=== PATIENT | female | born 1975 | race Caucasian/White ===

== ENCOUNTER 2023-02-22 13:22 | Emergency (ER) | payer BC ==
[~2023-02-22] VITALS: Ht 162.6 cm; Wt 50.9 kg
[2023-02-22 13:49] VITALS: BP 117/78; TEMP 98.1
[2023-02-22] MEDS ORDERED: MOTRIN 800800 MG/TAB PO (14:07)
[2023-02-22] MEDS ORDERED: AMOXICILLIN 50500 MG PO (14:07)
[2023-02-22 14:17] VITALS: PULSE 64
== END 2023-02-22 14:19 | disposition home or self-care (01) ==
LOC: COL.ER 13:22
DX: K08.89 Other specified disorders of teeth and supporting structures (principal)
CPT/HCPCS: J0696